=== PATIENT | female | born 1995 | race African-American/Black ===

== ENCOUNTER 2024-06-21 11:33 | Emergency (ER) | payer OTHER ==
[~2024-06-21] VITALS: Ht 162.6 cm; Wt 75.0 kg
[2024-06-21 12:06] VITALS: O2SAT 99
[2024-06-21 12:57] LABS: BASOPHILS % 0.5 % (0.0-2.0); EOSINOPHILS % 1.7 % (0.0-5.0); HEMATOCRIT. 35.4 % (36.0-48.0); LYMPHOCYTES % 25.1 % (20.0-50.0); MEAN CORPUSCULAR HEMOGLOBIN 27.8 pg (28.0-32.0); MEAN CORPUSCULAR VOLUME 81.8 fL (81.0-99.0); MEAN PLATELET VOLUME 9.4 fl (7.4-10.4); MONOCYTES % 10.5 % (2.0-8.0); NEUTROPHILS % 62.2 % (40.0-76.0); PLATELET 213 x1000/uL (130-400); RED BLOOD CELL COUNT 4.33 mill/uL (4.2-5.4); RED CELL DISTRIBUTION WIDTH 15.8 % (11.6-14.6); WHITE BLOOD COUNT 7.7 x1000/uL (4.5-11.0)
[2024-06-21 13:00] LABS: CHLORIDE 110 mEq/L (98-107); POTASSIUM 3.9 mEq/L (3.5-5.1); SODIUM 140 mEq/L (136-145)
[2024-06-21 13:01] LABS: CALCIUM 9.6 mg/dL (8.7-10.4); CARBON DIOXIDE 25 mEq/L (21-32)
[2024-06-21 13:06] LABS: CREATININE 0.7 mg/dL (0.6-1.0); GLUCOSE 90 mg/dL (70-105); UREA NITROGEN BLOOD 13 mg/dL (9-23)
[2024-06-21 14:20] VITALS: BP 126/68; PULSE 68; RESP 12; TEMP 36.78072
== END 2024-06-21 14:44 | disposition home or self-care (01) ==
LOC: ER 11:50
DX: N93.9 Abnormal uterine and vaginal bleeding, unspecified (principal); N85.8 Other specified noninflammatory disorders of uterus
CPT/HCPCS: 36415; 76830; 76856; 80048; 85025; 99284

== ENCOUNTER 2025-06-05 02:14 | Emergency (ER) | payer MEDICAID, OTHER ==
[~2025-06-05] VITALS: Ht 162.6 cm; Wt 77.0 kg
[2025-06-05 02:34] VITALS: O2SAT 97
[2025-06-05] MEDS: KETOROLAC 15MG/ML VIAL IM ONE (04:19)
[2025-06-05] MEDS ORDERED: NAPR-1176 MT (04:24)
[2025-06-05] MEDS ORDERED: LIDO-53 TP (04:24)
[2025-06-05 05:13] VITALS: BP 139/84; PULSE 18; RESP 20; TEMP 36.8; O2SAT 98
== END 2025-06-05 05:20 | disposition home or self-care (01) ==
LOC: ER 02:14
DX: M79.672 Pain in left foot (principal); Z79.1 Long term (current) use of non-steroidal anti-inflammatories (NSAID)
CPT/HCPCS: 99283; 81025; 73630; 96372; J1885; A6449

== ENCOUNTER 2025-07-30 00:10 | Emergency (ER) | payer SELFPAY ==
[~2025-07-30] VITALS: Ht 152.4 cm; Wt 77.0 kg
[~2025-07-30 00:10] MED LIST: LIDO-53 TP; NAPR-1176 MT
[2025-07-30 00:25] VITALS: O2SAT 99
[2025-07-30] MEDS ORDERED: AMOX-494 MT (01:49)
[2025-07-30] MEDS ORDERED: T3 PO (01:49)
[2025-07-30] MEDS ORDERED: IBUP-1455 MT (01:49)
[2025-07-30] MEDS: KETOROLAC 30MG/ML VIAL IM ONE (02:17)
[2025-07-30 02:20] VITALS: BP 135/95; PULSE 72; RESP 16; TEMP 37.4; O2SAT 99
== END 2025-07-30 02:20 | disposition home or self-care (01) ==
LOC: ER 00:26
DX: K08.89 Other specified disorders of teeth and supporting structures (principal)
CPT/HCPCS: 81025; 96372; 99283; J1885; Z7610

== ENCOUNTER 2025-08-24 13:35 | Emergency (ER) | payer SELFPAY ==
[~2025-08-24] VITALS: Ht 162.6 cm; Wt 85.0 kg
[~2025-08-24 13:35] MED LIST changes: +AMOX-494 MT; +IBUP-1455 MT; +T3 PO
[2025-08-24 13:49] VITALS: O2SAT 98
[2025-08-24] MEDS: FLUORESCEIN SODIUM 1MG/STRIP LEFTEYE ONE (15:19)
[2025-08-24] MEDS: TETRACAINE 0.5% OPHTH DROPS 4ML BOTHEYE ONE (15:20)
[2025-08-24 16:57] VITALS: BP 115/70; PULSE 80; RESP 18; TEMP 36.7; O2SAT 98
== END 2025-08-24 19:10 | disposition home or self-care (01) ==
LOC: ER 14:07
DX: L81.4 Other melanin hyperpigmentation (principal); H10.029 Other mucopurulent conjunctivitis, unspecified eye; Z98.890 Other specified postprocedural states; Z79.899 Other long term (current) drug therapy
CPT/HCPCS: 99283